=== PATIENT | female | born 1980 | race Caucasian/White ===

== ENCOUNTER 2024-11-28 06:29 | Emergency (ER) | payer OTHER ==
[~2024-11-28] VITALS: Ht 167.6 cm; Wt 62.0 kg
[2024-11-28 06:37] VITALS: O2SAT 98
[2024-11-28 07:57] LABS: CLARITY URINE CLEAR (CLEAR); COLOR URINE ORANGE (YELLOW); GLUCOSE URINE NEGATIVE (NEGATIVE); KETONES URINE NEGATIVE (NEGATIVE); LEUKOCYTE ESTERASE URINE TRACE (NEGATIVE); NITRITE URINE NEGATIVE (NEGATIVE); OCCULT BLOOD URINE 3+ (NEGATIVE); PH URINE 7.0 (4.5-8.0); PROTEIN URINE TRACE (NEGATIVE); SPECIFIC GRAVITY URINE 1.007 (1.005-1.030); UROBILINOGEN URINE 0.2 E.U./dL (0.2-1.0)
[2024-11-28 08:20] LABS: BASOPHILS % 0.8 % (0.0-2.0); EOSINOPHILS % 1.5 % (0.0-5.0); HEMATOCRIT. 24.6 % (36.0-48.0); HEMOGLOBIN. 7.8 g/dL (12.0-16.0); LYMPHOCYTES % 7.5 % (20.0-50.0); MEAN PLATELET VOLUME 9.7 fl (7.4-10.4); MONOCYTES % 5.9 % (2.0-8.0); NEUTROPHILS % 84.3 % (40.0-76.0); PLATELET 238 x1000/uL (130-400); RED BLOOD CELL COUNT 3.16 mill/uL (4.2-5.4); RED CELL DISTRIBUTION WIDTH 21.0 % (11.6-14.6)
[2024-11-28 08:22] LABS: RBC URINE TNTC /hpf (0-2)
[2024-11-28 08:23] LABS: MUCUS URINE TRACE /lpf (< = 2+)
[2024-11-28 08:24] LABS: BACTERIA URINE TRACE
[2024-11-28 08:25] LABS: SQUAMOUS EPITHELIAL CELL URINE RARE /lpf (RARE/1+)
[2024-11-28 08:26] LABS: WBC URINE 0-2 /hpf (0-2)
[2024-11-28] MEDS: KETOROLAC 30MG/ML VIAL IV ONE (08:26)
[2024-11-28 08:28] LABS: INR 1.1
[2024-11-28 08:35] LABS: CREATININE 0.6 mg/dL (0.6-1.0); UREA NITROGEN BLOOD 6 mg/dL (9-23)
[2024-11-28 08:37] LABS: ASPARTATE AMINOTRANSFERASE 15 IU/L (<34); BILIRUBIN DIRECT < 0.1 mg/dL (<=3.0); BILIRUBIN TOTAL 0.5 mg/dL (0.1-1.0); PROTEIN TOTAL 6.9 g/dL (6.0-8.3)
[2024-11-28 08:47] LABS: HCG SCREEN NEGATIVE
[2024-11-28 08:51] LABS: B-HCG QUANTITATIVE 1 mIU/mL (<6)
[2024-11-28 09:21] LABS: BASOPHILS % 0.4 % (0.0-2.0); EOSINOPHILS % 2.4 % (0.0-5.0); HEMATOCRIT. 21.4 % (36.0-48.0); LYMPHOCYTES % 8.8 % (20.0-50.0); MEAN PLATELET VOLUME 9.3 fl (7.4-10.4); MONOCYTES % 6.7 % (2.0-8.0); NEUTROPHILS % 81.7 % (40.0-76.0); PLATELET 198 x1000/uL (130-400); RED BLOOD CELL COUNT 2.74 mill/uL (4.2-5.4); RED CELL DISTRIBUTION WIDTH 21.4 % (11.6-14.6)
[2024-11-28 09:23] LABS: HEMOGLOBIN. 6.8 g/dL (12.0-16.0)
[2024-11-28] MEDS: MEDROXYPROGESTERONE ACET 5MG TABLET PO SCH (12:15)
[2024-11-28] MEDS: TRANEXAMIC ACID 1,000MG/10ML IV ONE (12:15)
[2024-11-28 14:10] VITALS: BP 96/62; PULSE 71; RESP 22; TEMP 36.6; O2SAT 98
[2024-11-29] MEDS ORDERED: MEDROXYPROGESTERONE ACET 5MG TABLET PO SCH (09:00)
== END 2024-11-28 13:00 | disposition short-term general hospital (02) ==
LOC: ER 06:29 → CANBEDREQ 11:26 → ER 13:00
DX: N93.9 Abnormal uterine and vaginal bleeding, unspecified (principal); D50.0 Iron deficiency anemia secondary to blood loss (chronic); N89.8 Other specified noninflammatory disorders of vagina; Z79.3 Long term (current) use of hormonal contraceptives; Z79.899 Other long term (current) drug therapy
CPT/HCPCS: 80076; 80048; 81003; 84703; 84702; 83735; 85025; 85610; 86850; 86900; 86901; 86920; 36415; 76830; 76856; 96374; 96375; 99291; J1885; Z7610; 36430